=== PATIENT | female | born 1985 | race Caucasian/White ===

== ENCOUNTER 2018-11-02 12:33 | Inpatient (IN) | payer OTHER ==
[2018-11-02] MEDS ORDERED: Methylergonovine 0.2 MG/1 ML Amp IM PRN ×2 (13:09→15:32)
[2018-11-02] MEDS ORDERED: Sodium Chloride 0.9% 10 ML SDV IV PRN (13:09)
[2018-11-02] MEDS ORDERED: Tranexamic Acid 1,000 MG in Sodium Chloride 0.9% 100 ML IV PRN (13:09)
[2018-11-02] MEDS ORDERED: Carboprost Tromethamine 250 MCG/1 ML Amp IM PRN (13:09)
[2018-11-02] MEDS ORDERED: Nalbuphine 10 MG/1 ML Vial IVPUSH PRN (13:09)
[2018-11-02] MEDS ORDERED: Misoprostol 200 MCG Tab PO PRN (13:09)
[2018-11-02] MEDS ORDERED: Water For Irrigation,Sterile 1,000 ML Container IRR PRN (13:09)
[2018-11-02] MEDS ORDERED: Ondansetron 4 MG/2 ML SDV IVPUSH PRN (13:09)
[2018-11-02] MEDS ORDERED: Sodium Chloride 0.9% 10 ML Syringe FLUSH PRN (13:09)
[2018-11-02] MEDS ORDERED: Butorphanol 1 MG/ML SDV IVPUSH PRN (13:09)
[2018-11-02] MEDS ORDERED: Sodium Chloride 0.9% 2.5 ML Syringe FLUSH PRN (13:09)
[2018-11-02] MEDS ORDERED: Lidocaine 1% 50 ML MDV INJECT PRN (13:09)
[2018-11-02] MEDS ORDERED: Oxytocin/0.9 % Sodium Chloride 30 UNIT/500 ML BAG IV SCH (13:15)
[2018-11-02] MEDS: Lactated Ringers 1,000 ML IV SCH ×3 (13:30→14:49)
--- NOTE | 2018-11-02 14:55 | PCM.PREANE ---
Preanesthetic Assessment - Procedure Proposed Procedure: Labor epidural - Anesthesia/Transfusion/Family Hx Anesthesia History: Prior Anesthesia Without Reaction Family History of Anesthesia Reaction: No Transfusion History: No Prior Transfusion(s) - Review of Systems General: No Symptoms Pulmonary: No Symptoms Cardiovascular: No Symptoms Gastrointestinal: No Symptoms Neurological: No Symptoms Other: Reports: None - Physical Assessment NPO Status Date: 11/02/18 NPO Status Time: 13:00 (water) Height: 5 ft 6 in Weight: 94.801 kg ASA Class: 2 Mental Status: Alert & Oriented x3 Airway Class: Mallampati = 2 Dentition: Reports: Normal Dentition Thyro-Mental Finger Breadths: 3 ROM/Head Extension: Full Lungs: Clear to Auscultation, Normal Respiratory Effort Cardiovascular: Regular Rate, Regular Rhythm - Lab Values: Laboratory Last Values WBC 9.31 K/uL (4.0-11.0) 11/02/18 13:29 RBC 4.16 M/uL (4.30-5.90) L 11/02/18 13:29 Hgb 12.9 g/dL (12.0-16.0) 11/02/18 13:29 Hct 37.3 % (36.0-46.0) 11/02/18 13:29 MCV 89.7 fL (80.0-98.0) 11/02/18 13:29 MCH 31.0 pg (27.0-32.0) 11/02/18 13:29 MCHC 34.6 g/dL (31.0-37.0) 11/02/18 13:29 RDW Std Deviation 42.6 fl (28.0-62.0) 11/02/18 13:29 RDW Coeff of María 13 % (11.0-15.0) 11/02/18 13:29 Plt Count 157 K/uL (150-400) 11/02/18 13:29 MPV 9.50 fL (7.40-12.00) 11/02/18 13:29 Nucleated RBC % 0.0 /100WBC 11/02/18 13:29 Nucleated RBCs # 0 K/uL 11/02/18 13:29 Blood Type A POSITIVE 11/02/18 13:29 Antibody Screen NEGATIVE 11/02/18 13:29 - Allergies Allergies/Adverse Reactions: Allergies Allergy/AdvReac Type Severity Reaction Status Date / Time peanut Allergy Anaphylactic Verified 11/02/18 12:41 Shock Penicillins Allergy Cannot Verified 11/02/18 12:41 Remember - Acknowledgements Anesthesia Type Planned: Epidural Pt an Appropriate Candidate for the Planned Anesthesia: Yes Alternatives and Risks of Anesthesia Discussed w Pt/Guardian: Yes Pt/Guardian Understands and Agrees with Anesthesia Plan: Yes PreAnesthesia Questionnaire - HOME MEDS Home Medications: Home Meds Aspirin [Children's Aspirin] 81 mg PO DAILY 11/02/18 [History] Pnv No.95/Ferrous Fum/Folic AC [ Caplet] 1 each PO DAILY 11/02/18 [ History] - CURRENT (IN HOUSE) MEDS Current Meds: Current Medications Butorphanol Tartrate (Stadol) 1 mg IVPUSH Q1H PRN PRN Reason: Pain Carboprost Tromethamine (Hemabate Ds) 250 mcg IM ASDIRECTED PRN PRN Reason: Post Hemorrhage Tranexamic Acid 1,000 mg/ (Sodium Chloride) 110 mls @ 660 mls/hr IV ONETIME PRN PRN Reason: Bleeding Lactated Ringer's (Ringers, Lactated) 1,000 mls @ 150 mls/hr IV ASDIRECTED JOSE Last Admin: 11/02/18 14:12 Dose: 999 mls/hr Oxytocin/Sodium Chloride (Oxytocin 30 Unit/500 Ml-Ns) 30 unit in 500 mls @ 999 mls/hr IV TITRATE [facility] Lidocaine HCl (Xylocaine 1%) 50 ml INJECT ONETIME PRN PRN Reason: Laceration repair Methylergonovine Maleate (Methergine) 0.2 mg IM ASDIRECTED PRN PRN Reason: Post Hemorrhage Misoprostol (Cytotec) 200 mcg PO ONETIME PRN PRN Reason: Post Hemorrhage Nalbuphine HCl (Nubain) 10 mg IVPUSH Q1H PRN PRN Reason: Pain (severe 7-10) Ondansetron HCl (Zofran) 4 mg IVPUSH Q6H PRN PRN Reason: Nausea/Vomiting Sodium Chloride (Saline Flush) 10 ml FLUSH ASDIRECTED PRN PRN Reason: Keep Vein Open Sodium Chloride (Saline Flush) 2.5 ml FLUSH ASDIRECTED PRN PRN Reason: Keep Vein Open Sodium Chloride (Normal Saline) 10 ml IV ASDIRECTED PRN PRN Reason: IV Use Sterile Water (Sterile Water For Irrigation) 1,000 ml IRR ASDIRECTED PRN PRN Reason: delivery Discontinued Medications Fentanyl/Bupivacaine HCl (Jgcgeilq-Besrp-Cw 2 Mcg/Ml-0.125%) Confirm Administered Dose 100 mls @ as directed .ROUTE .[facility] ONE Stop: 11/02/18 14:22
--- NOTE | 2018-11-02 15:31 | PCM.DEL ---
L & D Note - General Info Date of Service: 11/02/18 Mother's Due Date: 11/08/18 - Delivery Note Labor: Spontaneous Delivery Outcome: Livebirth Infant Delivery Method: Spontaneous Vaginal Delivery-Single Presentation: Left Occiput Anterior (JENNY) Nuchal Cord: None Prep: Other Anesthesia Type: Epidural Amniotic Fluid Description: Clear Episiotomy Type: None Laceration: None Placenta: Intact, Spontaneous Cord: 3 Vessels Estimated Blood Loss: 200 Resuscitation Needed: No : Suctioned Score 1 min: 8 Score 5 min: 9 Delivery Comments (Free Text/Narrative):: Liveborn male 8/9 weight is pending. Placenta spontaneous, Schultze, intact with 3 vessels. Perineum intact. - General Info Date of Service: 11/02/18 - Patient Data Weight - Most Recent: 94.801 kg Lab Results Last 24 Hours: Laboratory Results - last 24 hr 11/02/18 11/02/18 Range/Units 13:29 13:29 WBC 9.31 (4.0-11.0) K/uL RBC 4.16 L (4.30-5.90) M/uL Hgb 12.9 (12.0-16.0) g/dL Hct 37.3 (36.0-46.0) % MCV 89.7 (80.0-98.0) fL MCH 31.0 (27.0-32.0) pg MCHC 34.6 (31.0-37.0) g/dL RDW Std Deviation 42.6 (28.0-62.0) fl RDW Coeff of María 13 (11.0-15.0) % Plt Count 157 (150-400) K/uL MPV 9.50 (7.40-12.00) fL Nucleated RBC % 0.0 /100WBC Nucleated RBCs # 0 K/uL Blood Type A POSITIVE Antibody Screen NEGATIVE Med Orders - Current: Current Medications Butorphanol Tartrate (Stadol) 1 mg IVPUSH Q1H PRN PRN Reason: Pain Carboprost Tromethamine (Hemabate Ds) 250 mcg IM ASDIRECTED PRN PRN Reason: Post Hemorrhage Tranexamic Acid 1,000 mg/ (Sodium Chloride) 110 mls @ 660 mls/hr IV ONETIME PRN PRN Reason: Bleeding Lactated Ringer's (Ringers, Lactated) 1,000 mls @ 150 mls/hr IV ASDIRECTED [facility] Last Admin: 11/02/18 14:49 Dose: 150 mls/hr Oxytocin/Sodium Chloride (Oxytocin 30 Unit/500 Ml-Ns) 30 unit in 500 mls @ 999 mls/hr IV TITRATE [facility] Lidocaine HCl (Xylocaine 1%) 50 ml INJECT ONETIME PRN PRN Reason: Laceration repair Methylergonovine Maleate (Methergine) 0.2 mg IM ASDIRECTED PRN PRN Reason: Post Hemorrhage Misoprostol (Cytotec) 200 mcg PO ONETIME PRN PRN Reason: Post Hemorrhage Nalbuphine HCl (Nubain) 10 mg IVPUSH Q1H PRN PRN Reason: Pain (severe 7-10) Ondansetron HCl (Zofran) 4 mg IVPUSH Q6H PRN PRN Reason: Nausea/Vomiting Sodium Chloride (Saline Flush) 10 ml FLUSH ASDIRECTED PRN PRN Reason: Keep Vein Open Sodium Chloride (Saline Flush) 2.5 ml FLUSH ASDIRECTED PRN PRN Reason: Keep Vein Open Sodium Chloride (Normal Saline) 10 ml IV ASDIRECTED PRN PRN Reason: IV Use Sterile Water (Sterile Water For Irrigation) 1,000 ml IRR ASDIRECTED PRN PRN Reason: delivery Discontinued Medications Fentanyl/Bupivacaine HCl (Xmgkyhvv-Irsfc-Zr 2 Mcg/Ml-0.125%) Confirm Administered Dose 100 mls @ as directed .ROUTE .[facility] ONE Stop: 11/02/18 14:22 - Problem List & Annotations (1) Vaginal delivery SNOMED Code(s): 927439012 Code(s): O80 - ENCOUNTER FOR FULL-TERM UNCOMPLICATED DELIVERY Status: Acute Current Visit: Yes - Problem List Review Problem List Initiated/Reviewed/Updated: Yes - My Orders Last 24 Hours: My Active Orders 11/02/18 12:44 Vital Signs [RC] PER UNIT ROUTINE Resuscitation Status Routine 11/02/18 13:07 Patient Status [ADT] Routine 11/02/18 13:09 May Shower [RC] ASDIRECTED Notify Provider [RC] PRN Up ad Krista [RC] ASDIRECTED Vital Signs [RC] PER UNIT ROUTINE Butorphanol [Stadol] 1 mg IVPUSH Q1H PRN Carboprost Tromethamine [Hemabate DS] 250 mcg IM ASDIRECTED PRN Lidocaine 1% [Xylocaine 1%] 50 ml INJECT ONETIME PRN Methylergonovine [Methergine] 0.2 mg IM ASDIRECTED PRN Nalbuphine [Nubain] 10 mg IVPUSH Q1H PRN Ondansetron [Zofran] 4 mg IVPUSH Q6H PRN Sodium Chloride 0.9% [Normal Saline] 10 ml IV ASDIRECTED PRN Sodium Chloride 0.9% [Saline Flush] 10 ml FLUSH ASDIRECTED PRN Sodium Chloride 0.9% [Saline Flush] 2.5 ml FLUSH ASDIRECTED PRN Tranexamic Acid [Cyklokapron] 1,000 mg Sodium Chloride 0.9% [Normal Saline] 100 ml IV ONETIME Water For Irrigation,Sterile [Sterile Water for Irrigation] 1,000 ml IRR ASDIRECTED PRN miSOPROStol [Cytotec] 200 mcg PO ONETIME PRN Scalp Electrode [WOMSER] Per Unit Routine Peripheral IV Insertion Adult [OM.PC] Routine 11/02/18 13:15 Lactated Ringers [Ringers, Lactated] 1,000 ml IV ASDIRECTED Oxytocin/0.9 % Sodium Chloride [Oxytocin 30 Unit/500 ML-NS] 30 unit in 500 ml IV TITRATE
[2018-11-02] MEDS ORDERED: Docusate Sodium 100 MG Cap PO PRN (15:32)
[2018-11-02] MEDS ORDERED: Benzocaine/Menthol 20%-0.5% Spray 78 GM Cannister TOP PRN (15:32)
[2018-11-02] MEDS ORDERED: Lanolin 100% Cream 7 GM Tube TOP PRN (15:32)
[2018-11-02] MEDS ORDERED: Bisacodyl 10 MG Supp RECTAL PRN (15:32)
[2018-11-02] MEDS ORDERED: Witch Hazel Medicated Pads 40/Jar TOP PRN (15:32)
[2018-11-02] MEDS ORDERED: Acetaminophen 500 MG Tab PO PRN ×2 (15:32)
[2018-11-02] MEDS ORDERED: Ibuprofen 400 MG Tab PO PRN (15:32)
[2018-11-02] MEDS ORDERED: Ibuprofen 800 MG Tab PO PRN (15:32)
[2018-11-02] MEDS ORDERED: oxyCODONE 5 MG Tab PO PRN (15:32)
--- NOTE | 2018-11-02 23:00 | OR ---
SURGEON: Margarita Monroe M.D. DATE OF PROCEDURE: 11/02/2018 PREOPERATIVE DIAGNOSES: 39 and 3/7 week intrauterine , active spontaneous labor. POSTOPERATIVE DIAGNOSIS: 39 and 3/7 week intrauterine , active spontaneous labor. PROCEDURE: Term spontaneous vaginal delivery. PRIMARY SURGEON: Margarita Monroe M.D. ANESTHESIA: Epidural. ESTIMATED BLOOD LOSS: Less than 200 mL. FINDINGS: Liveborn male, Apgars 8 and 9. Weight is pending at the time of dictation. Placenta is spontaneous, Schultze intact with 3 vessels. Perineum intact. COMPLICATIONS: None known. DISPOSITION: Mother and baby are in LDR in good condition. BRIEF HISTORY: This is a 33-year-old female, G5, P2-0-0-2. She presents at 39 and 3/7 weeks' gestation with spontaneous rupture of membranes at noon. She was initially 3 to 4 cm dilated. Within an hour, she was 4 cm to 5 cm dilated and then progressed into active labor. She received an epidural for pain control. She had category 1 heart tones. She progressed to complete by 3:11 p.m. DESCRIPTION OF PROCEDURE: With the patient in dorsal lithotomy position, the patient pushed over 1 contraction to a 5+ station at which time the head was delivered spontaneously and atraumatically over the perineum with support with subsequent delivery of the infant's shoulders and body without any difficulty. The infant was bulb suctioned by nose and mouth. After the cord had ceased to pulsate, it was doubly clamped and cut. Cord blood was collected for cord ABGs as well as routine cord blood sampling. The baby had been handed to the mother in the presence of the nurse attending delivery. The was a liveborn male, scores 8 and 9. Weight pending. Pitocin was initiated after delivery of the to assist with delivery of the placenta which was delivered spontaneously, Schultze intact with 3 vessels. Upon inspection of the pelvis and perineum, there were no periurethral, vaginal sidewall, cervical, rectal, or perineal lacerations. EBL was less than 200 mL. There were no known complications. Final sponge, needle, and instrument counts were correct. Mother and baby remained in LDR in good condition. MATTHEW / MAIA /[id number]
--- NOTE | 2018-11-03 10:17 | PCM.PNPP ---
- General Info Date of Service: 11/03/18 Functional Status: Reports: Pain Controlled, Tolerating Diet, Ambulating, Urinating - Review of Systems General: Reports: No Symptoms HEENT: Reports: No Symptoms Pulmonary: Reports: No Symptoms Cardiovascular: Reports: No Symptoms Gastrointestinal: Reports: No Symptoms Genitourinary: Reports: No Symptoms Musculoskeletal: Reports: No Symptoms Skin: Reports: No Symptoms Neurological: Reports: No Symptoms Psychiatric: Reports: No Symptoms - General Info Date of Service: 11/03/18 - Patient Data Vital Signs - Most Recent: Last Vital Signs Temp 36.5 C 11/03/18 07:40 Pulse 68 11/03/18 07:40 Resp 16 11/03/18 07:40 BP 122/70 11/03/18 07:40 Pulse Ox 98 11/03/18 07:40 Weight - Most Recent: 94.801 kg Lab Results - Last 24 Hours: Laboratory Results - last 24 hr 11/02/18 11/02/18 11/02/18 Range/Units 13:29 13:29 15:16 WBC 9.31 (4.0-11.0) K/uL RBC 4.16 L (4.30-5.90) M/uL Hgb 12.9 (12.0-16.0) g/dL Hct 37.3 (36.0-46.0) % MCV 89.7 (80.0-98.0) fL MCH 31.0 (27.0-32.0) pg MCHC 34.6 (31.0-37.0) g/dL RDW Std Deviation 42.6 (28.0-62.0) fl RDW Coeff of María 13 (11.0-15.0) % Plt Count 157 (150-400) K/uL MPV 9.50 (7.40-12.00) fL Nucleated RBC % 0.0 /100WBC Nucleated RBCs # 0 K/uL Cord ABG pH 7.330 (7.18-7.38) Cord ABG Base Excess -3 (-10--2) Cord VBG pH 7.422 (7.25-7.45) Cord VBG Base Excess -4 (-10--2) Blood Type A POSITIVE Antibody Screen NEGATIVE 11/03/18 Range/Units 05:47 WBC (4.0-11.0) K/uL RBC (4.30-5.90) M/uL Hgb 12.9 (12.0-16.0) g/dL Hct 38.1 (36.0-46.0) % MCV (80.0-98.0) fL MCH (27.0-32.0) pg MCHC (31.0-37.0) g/dL RDW Std Deviation (28.0-62.0) fl RDW Coeff of María (11.0-15.0) % Plt Count (150-400) K/uL MPV (7.40-12.00) fL Nucleated RBC % /100WBC Nucleated RBCs # K/uL Cord ABG pH (7.18-7.38) Cord ABG Base Excess (-10--2) Cord VBG pH (7.25-7.45) Cord VBG Base Excess (-10--2) Blood Type Antibody Screen Med Orders - Current: Current Medications Acetaminophen (Tylenol Extra Strength) 500 mg PO Q4H PRN PRN Reason: Pain Acetaminophen (Tylenol Extra Strength) 1,000 mg PO Q4H PRN PRN Reason: Pain Benzocaine/Menthol (Dermoplast Pain Relief 20%-0.5% [place]) 78 gm TOP ASDIRECTED PRN PRN Reason: Perineal Comfort Measure Bisacodyl (Dulcolax) 10 mg RECTAL ONETIME PRN PRN Reason: Constipation Docusate Sodium (Colace) 100 mg PO BID PRN PRN Reason: Constipation Emollient Ointment (Lansinoh Hpa) 0 gm TOP ASDIRECTED PRN PRN Reason: Sore Nipples Ibuprofen (Motrin) 400 mg PO Q6H PRN PRN Reason: Pain Ibuprofen (Motrin) 800 mg PO Q6H PRN PRN Reason: Pain Methylergonovine Maleate (Methergine) 0.2 mg IM ONETIME PRN PRN Reason: Excessive Vaginal Bleeding Oxycodone HCl (Oxycodone) 5 mg PO Q2H PRN PRN Reason: Pain Witch Sury (Tucks) 1 pad TOP ASDIRECTED PRN PRN Reason: comfort care Discontinued Medications Butorphanol Tartrate (Stadol) 1 mg IVPUSH Q1H PRN PRN Reason: Pain Carboprost Tromethamine (Hemabate Ds) 250 mcg IM ASDIRECTED PRN PRN Reason: Post Hemorrhage Tranexamic Acid 1,000 mg/ (Sodium Chloride) 110 mls @ 660 mls/hr IV ONETIME PRN PRN Reason: Bleeding Lactated Ringer's (Ringers, Lactated) 1,000 mls @ 150 mls/hr IV ASDIRECTED [facility] Last Admin: 11/02/18 14:49 Dose: 150 mls/hr Oxytocin/Sodium Chloride (Oxytocin 30 Unit/500 Ml-Ns) 30 unit in 500 mls @ 999 mls/hr IV TITRATE [facility] Fentanyl/Bupivacaine HCl (Bmdwkihn-Pqoyk-Vd 2 Mcg/Ml-0.125%) Confirm Administered Dose 100 mls @ as directed .ROUTE .[facility] ONE Stop: 11/02/18 14:22 Lidocaine HCl (Xylocaine 1%) 50 ml INJECT ONETIME PRN PRN Reason: Laceration repair Methylergonovine Maleate (Methergine) 0.2 mg IM ASDIRECTED PRN PRN Reason: Post Hemorrhage Misoprostol (Cytotec) 200 mcg PO ONETIME PRN PRN Reason: Post Hemorrhage Nalbuphine HCl (Nubain) 10 mg IVPUSH Q1H PRN PRN Reason: Pain (severe 7-10) Ondansetron HCl (Zofran) 4 mg IVPUSH Q6H PRN PRN Reason: Nausea/Vomiting Sodium Chloride (Saline Flush) 10 ml FLUSH ASDIRECTED PRN PRN Reason: Keep Vein Open Sodium Chloride (Saline Flush) 2.5 ml FLUSH ASDIRECTED PRN PRN Reason: Keep Vein Open Sodium Chloride (Normal Saline) 10 ml IV ASDIRECTED PRN PRN Reason: IV Use Sterile Water (Sterile Water For Irrigation) 1,000 ml IRR ASDIRECTED PRN PRN Reason: delivery - Interaction Infant Disposition, : in Room with Family Interaction: Holding Infant Feeding: Breastfed ; Nursed Well Support Person: , Significant Other - Recovery Exam Fundal Tone: Firm Fundal Level: 1 Fingerbreadths Below Umbilicus Fundal Placement: Midline Lochia Amount: Scant Lochia Color: Rubra/Red Perineum Description: Intact, Minimal Bruising/Swelling Episiotomy/Laceration: None Bladder Status: Voiding Urinary Elimination: Voided - Exam General: Alert, Oriented HEENT: Pupils Equal Neck: Supple Lungs: Normal Respiratory Effort GI/Abdominal Exam: Soft, Non-Tender, No Distention, No Abnormal Bruit, No Mass, Pelvis Stable Extremities: Normal Inspection, Non-Tender, No Pedal Edema Skin: Warm, Dry, Intact Neurological: No New Focal Deficit Psy/Mental Status: Alert, Normal Affect, Normal Mood - Problem List & Annotations (1) Vaginal delivery SNOMED Code(s): 762629902 Code(s): O80 - ENCOUNTER FOR FULL-TERM UNCOMPLICATED DELIVERY Status: Acute Current Visit: Yes - Problem List Review Problem List Initiated/Reviewed/Updated: Yes - My Orders Last 24 Hours: My Active Orders 11/02/18 12:44 Vital Signs [RC] PER UNIT ROUTINE 11/02/18 13:09 May Shower [RC] ASDIRECTED Notify Provider [RC] PRN Up ad Krista [RC] ASDIRECTED Vital Signs [RC] PER UNIT ROUTINE 11/02/18 15:32 Patient Status [ADT] Routine July Shower [RC] ASDIRECTED Up ad Krista [RC] ASDIRECTED Vital Signs [RC] PER UNIT ROUTINE Acetaminophen [Tylenol Extra Strength] 1,000 mg PO Q4H PRN Acetaminophen [Tylenol Extra Strength] 500 mg PO Q4H PRN Benzocaine/Menthol [Dermoplast Pain Relief 20%-0.5% [place]] 78 gm TOP ASDIRECTED PRN Bisacodyl [Dulcolax] 10 mg RECTAL ONETIME PRN Docusate Sodium [Colace] 100 mg PO BID PRN Ibuprofen [Motrin] 400 mg PO Q6H PRN Ibuprofen [Motrin] 800 mg PO Q6H PRN Lanolin [Lansinoh HPA] See Dose Instructions TOP ASDIRECTED PRN Methylergonovine [Methergine] 0.2 mg IM ONETIME PRN Witch Sury [Tucks] 1 pad TOP ASDIRECTED PRN oxyCODONE 5 mg PO Q2H PRN Assess Lochia [WOMSER] Per Unit Routine Assess Uterine Involution [WOMSER] Per Unit Routine Peripheral IV Discontinue [OM.PC] Routine Resuscitation Status Routine 11/02/18 15:33 Perineal Care [OM.PC] Per Unit Routine 11/02/18 Dinner Regular Diet [DIET] - Assessment Assessment:: PPD#1 after , stable, Minimal lochia, well, would like to go home today. - Plan Plan:: Discharge instructions reviewed, dismiss when greater than 24 hours .
--- NOTE | 2018-11-03 15:34 | PCM48HPAN ---
Post Anesthesia Note - EVALUATION WITHIN 48HRS OF ANESTHETIC Vital Signs in Normal Range: Yes Patient Participated in Evaluation: Yes Respiratory Function Stable: Yes Airway Patent: Yes Cardiovascular Function Stable: Yes Hydration Status Stable: Yes Pain Control Satisfactory: Yes Nausea and Vomiting Control Satisfactory: Yes Mental Status Recovered: Yes Vital Signs: Last Vital Signs Temp 36.5 C 11/03/18 07:40 Pulse 68 11/03/18 07:40 Resp 16 11/03/18 07:40 BP 122/70 11/03/18 07:40 Pulse Ox 98 11/03/18 07:40 - COMMENTS/OBSERVATIONS Free Text/Narrative:: no anesthesia problems
== END 2018-11-03 18:00 | disposition home or self-care (01) | DRG 807 ==
LOC: MW.OBCHECK 12:33 → MW.OB 12:34 → MW.OBCHECK 13:08 → MW.OB 13:09 → OBSVTOIN 15:16 → MW.OB 22:18
PROVIDERS: ADMIT Obstetrics & Gynecology; ATTEND Obstetrics & Gynecology
PROC: 10E0XZZ Delivery of Products of Conception, External Approach (ICD-10-PCS; principal; 2018-11-02)
PROC: 3E0R3BZ Introduction of Anesthetic Agent into Spinal Canal, Percutaneous Approach (ICD-10-PCS; 2018-11-02)
DX: O80 Encounter for full-term uncomplicated delivery (principal); Z37.0 Single live birth; Z3A.39 39 weeks gestation of pregnancy; Z88.0 Allergy status to penicillin; Z79.82 Long term (current) use of aspirin
CPT/HCPCS: 01967; 36415; 59025; 59409; 82803; 85014; 85018; 85027; 86850; 86900; 86901; J7120

== ENCOUNTER 2020-11-07 18:58 | Inpatient (IN) | payer BC ==
[2020-11-07] MEDS ORDERED: Ondansetron 4 MG/2 ML SDV IVPUSH PRN (19:18)
[2020-11-07] MEDS ORDERED: Sodium Chloride 0.9% 2.5 ML Syringe FLUSH PRN (19:18)
[2020-11-07] MEDS ORDERED: Methylergonovine 0.2 MG/1 ML Amp IM PRN (19:18)
[2020-11-07] MEDS ORDERED: Sodium Chloride 0.9% 10 ML Syringe FLUSH PRN (19:18)
[2020-11-07] MEDS ORDERED: Lidocaine 1% 50 ML MDV INJECT PRN (19:18)
[2020-11-07] MEDS ORDERED: Tranexamic Acid 1,000 MG in Sodium Chloride 0.9% 100 ML IV PRN (19:18)
[2020-11-07] MEDS ORDERED: Carboprost Tromethamine 250 MCG/1 ML Amp IM PRN (19:18)
[2020-11-07] MEDS ORDERED: Nalbuphine 10 MG/1 ML Vial IVPUSH PRN (19:18)
[2020-11-07] MEDS ORDERED: Misoprostol 200 MCG Tab PO PRN (19:18)
[2020-11-07] MEDS ORDERED: Water For Irrigation,Sterile 1,000 ML Container IRR PRN (19:18)
[2020-11-07] MEDS ORDERED: Sodium Chloride 0.9% 10 ML SDV IV PRN (19:18)
[2020-11-07] MEDS ORDERED: Butorphanol 1 MG/ML SDV IVPUSH PRN (19:18)
[2020-11-07] MEDS ORDERED: Terbutaline 1 MG/ML SDV SUBCUT PRN (19:22)
[2020-11-07] MEDS ORDERED: Oxytocin/0.9 % Sodium Chloride 30 UNIT/500 ML BAG IV SCH ×2 (19:30)
[2020-11-07] MEDS: Lactated Ringers 1,000 ML IV SCH ×3 (19:35→21:19)
[2020-11-07] MEDS ORDERED: Ropivacaine HCl/PF 200 ML ONE (19:47)
[2020-11-07] MEDS ORDERED: ePHEDrine 50 MG/ML SDV IM ONE (20:33)
[2020-11-07] MEDS ORDERED: ePHEDrine 50 MG/ML SDV IVPUSH ONE (20:39)
[2020-11-07] MEDS ORDERED: EPINEPHrine 1 MG/ML SDV ONE (20:42)
--- NOTE | 2020-11-07 21:44 | PCM.PREANE ---
Preanesthetic Assessment - Anesthesia/Transfusion/Family Hx Anesthesia History: Prior Anesthesia Without Reaction Family History of Anesthesia Reaction: No Transfusion History: No Prior Transfusion(s) - Review of Systems General: No Symptoms Pulmonary: No Symptoms Cardiovascular: No Symptoms Gastrointestinal: No Symptoms Neurological: No Symptoms Other: Reports: None - Physical Assessment Height: 5 ft 5 in Weight: 204 lb ASA Class: 2 Mental Status: Alert & Oriented x3 Airway Class: Mallampati = 3 Dentition: Reports: Normal Dentition ROM/Head Extension: Full Lungs: Clear to Auscultation, Normal Respiratory Effort Cardiovascular: Regular Rate, Regular Rhythm - Lab Values: Laboratory Last Values WBC 9.76 K/uL (4.0-11.0) 11/07/20 19:35 RBC 4.14 M/uL (4.30-5.90) L 11/07/20 19:35 Hgb 13.2 g/dL (12.0-16.0) 11/07/20 19:35 Hct 37.0 % (36.0-46.0) 11/07/20 19:35 MCV 89.4 fL (80.0-98.0) 11/07/20 19:35 MCH 31.9 pg (27.0-32.0) 11/07/20 19:35 MCHC 35.7 g/dL (31.0-37.0) 11/07/20 19:35 RDW Std Deviation 41.3 fl (28.0-62.0) 11/07/20 19:35 RDW Coeff of María 13 % (11.0-15.0) 11/07/20 19:35 Plt Count 186 K/uL (150-400) 11/07/20 19:35 MPV 9.40 fL (7.40-12.00) 11/07/20 19:35 Nucleated RBC % 0.0 /100WBC 11/07/20 19:35 Nucleated RBCs # 0 K/uL 11/07/20 19:35 SARS-CoV-2 RNA (OCTAVIO) NEGATIVE (NEGATIVE) 11/07/20 19:35 Blood Type A POSITIVE 11/07/20 19:35 Antibody Screen NEGATIVE 11/07/20 19:35 - Allergies Allergies/Adverse Reactions: Allergies Allergy/AdvReac Type Severity Reaction Status Date / Time cat dander Allergy Rash Verified 08/31/21 19:17 peanut Allergy Anaphylactic Verified 11/07/20 19:17 Shock Penicillins Allergy Cannot Verified 11/07/20 19:17 Remember - Blood Blood Available: Yes Product(s) Available: PRBC, FFP, Platelets - Anesthesia Plan Pre-Op Medication Ordered: None - Acknowledgements Anesthesia Type Planned: Epidural Pt an Appropriate Candidate for the Planned Anesthesia: Yes Alternatives and Risks of Anesthesia Discussed w Pt/Guardian: Yes Pt/Guardian Understands and Agrees with Anesthesia Plan: Yes PreAnesthesia Questionnaire - Past Health History Medical/Surgical History: Denies Medical/Surgical History Cardiovascular History: Reports: None Respiratory History: Reports: None Gastrointestinal History: Reports: None Genitourinary History: Reports: None SHEEP HERDER History: Reports: , Spontaneous , Other (See Below) Other OB/BYN History: Suction D&C. Lumpy, tender breasts. Neurological History: Reports: None Psychiatric History: Reports: None Endocrine/Metabolic History: Reports: None Oncologic (Cancer) History: Reports: None Dermatologic History: Reports: None - Infectious Disease History Infectious Disease History: Reports: Chicken Pox - Past Surgical History Head Surgeries/Procedures: Reports: None Respiratory Surgical History: Reports: None - HOME MEDS Home Medications: Home Meds Aspirin [Children's Aspirin] 81 mg PO DAILY 11/02/18 [History] Pnv No.95/Ferrous Fum/Folic AC [ Caplet] 1 each PO DAILY 11/02/18 [History] - CURRENT (IN HOUSE) MEDS Current Meds: Current Medications Butorphanol Tartrate (Butorphanol 1 Mg/Ml Sdv) 1 mg IVPUSH Q1H PRN PRN Reason: Pain (severe 7-10) Carboprost Tromethamine (Carboprost Tromethamine 250 Mcg/1 Ml Amp) 250 mcg IM ASDIRECTED PRN PRN Reason: Post Hemorrhage Oxytocin/Sodium Chloride (Oxytocin 30 Unit/500 Ml-Ns) 30 unit in 500 mls @ 500 mls/hr IV TITRATE JOSE Tranexamic Acid 1,000 mg/ (Sodium Chloride) 110 mls @ 660 mls/hr IV ONETIME PRN PRN Reason: Bleeding Lactated Ringer's (Ringers, Lactated) 1,000 mls @ 150 mls/hr IV ASDIRECTED [facility] Last Admin: 11/07/20 21:19 Dose: 150 mls/hr Documented by: Oxytocin/Sodium Chloride (Oxytocin 30 Unit/500 Ml-Ns) 30 unit in 500 mls @ 2 mls/hr IV TITRATE JOSE; Protocol Lidocaine HCl (Lidocaine 1% 50 Ml Mdv) 50 ml INJECT ONETIME PRN PRN Reason: Laceration repair Methylergonovine Maleate (Methylergonovine 0.2 Mg/1 Ml Amp) 0.2 mg IM ASDIRECTED PRN PRN Reason: Post Hemorrhage Misoprostol (Misoprostol 200 Mcg Tab) 200 mcg PO ONETIME PRN PRN Reason: Post Hemorrhage Nalbuphine HCl (Nalbuphine 10 Mg/1 Ml Vial) 10 mg IVPUSH Q1H PRN PRN Reason: Pain (severe 7-10) Ondansetron HCl (Ondansetron 4 Mg/2 Ml Sdv) 4 mg IVPUSH Q4H PRN PRN Reason: Nausea/Vomiting Last Admin: 11/07/20 20:48 Dose: 4 mg Documented by: Sodium Chloride (Sodium Chloride 0.9% 10 Ml Syringe) 10 ml FLUSH ASDIRECTED PRN PRN Reason: Keep Vein Open Sodium Chloride (Sodium Chloride 0.9% 2.5 Ml Syringe) 2.5 ml FLUSH ASDIRECTED PRN PRN Reason: Keep Vein Open Sodium Chloride (Sodium Chloride 0.9% 10 Ml Sdv) 10 ml IV ASDIRECTED PRN PRN Reason: IV Use Sterile Water (Water For Irrigation,Sterile 1,000 Ml Container) 1,000 ml IRR ASDIRECTED PRN PRN Reason: delivery Terbutaline Sulfate (Terbutaline 1 Mg/Ml Sdv) 0.25 mg SUBCUT ASDIRECTED PRN PRN Reason: Tacysystole Discontinued Medications Ephedrine Sulfate (Ephedrine 50 Mg/Ml Sdv) 25 mg IM ONETIME ONE Stop: 11/07/20 20:34 Last Admin: 11/07/20 21:16 Dose: 25 mg Documented by: Ephedrine Sulfate (Ephedrine 50 Mg/Ml Sdv) 25 mg IVPUSH ONETIME ONE Stop: 11/07/20 20:40 Last Admin: 11/07/20 20:49 Dose: 25 mg Documented by: Epinephrine HCl (Epinephrine 1 Mg/Ml Sdv) Confirm Administered Dose 1 mg .ROUTE .STK-MED ONE Stop: 11/07/20 20:43 Ropivacaine (Naropin 0.2%) Confirm Administered Dose 200 mls @ as directed .ROUTE .buildabrand-MED ONE Stop: 11/07/20 19:48 - Pre-Procedure Checklist Attending Provider Aware: Yes Chart Reviewed: Yes Consent Signed: Yes Labs Reviewed: Yes VS/FHR Reviewed: Yes Patient Identification Confirmation Method: Reports: Verbal Patient Pt an Appropriate Candidate for the Planned Anesthesia: Yes Alternatives and Risks of Anesthesia Discussed w Pt/Guardian: Yes - Procedure Procedure Start Date: 11/07/20 Procedure Start Time: 19:[address]: Reports: Blood Pressure, Heart Rate, SPO2 Functional IV: Yes Safety Measures: Reports: Patient Identified, Procedure Verified, Site Verified, Procedure Time Out Patient Position: Reports: Sitting Prep: Reports: Betadine x3, Sterile Drape Local Anesthetic: Reports: Intradermal Wheal w Lidocaine 1% Regional Placement Level: Reports: L3-4 Needle: Reports: 17 g Touhy Approach: Reports: Midline Technique: Reports: JUANITO Plastic Syringe Parasthesia: Reports: None Test Dose Time: 19:54 Test Dose Medication: Reports: Lidocaine 1.5% w Epinephrine 1:200,000 Test Dose Response: Reports: Negative Loading Dose Time: 19:53 Loading Dose Medication: bupivicaine 0.25% 10cc Loading Dose Patient Position: sitting Continuous Infusion Start Time: 19:55 Continuous Infusion Medication: ropivicaine 0.2% Continuous Infusion Rate: 16 Continuous Infusion PCS Bolus Option: 4 Patient Position Post Placement: Reports: Supline/FATEMEH VS and FHR Monitored in Unit Post Placement: Yes Procedure End Date: 11/07/20 Procedure End Time: 20:51
--- NOTE | 2020-11-07 21:45 | PCM.POSTAN ---
POST ANESTHESIA ASSESSMENT - MENTAL STATUS Mental Status: Alert, Oriented - RESPIRATORY Respiratory Status: Respiratory Rate WNL, Airway Patent, O2 Saturation Stable - CARDIOVASCULAR CV Status: Pulse Rate WNL, Blood Pressure Stable - GASTROINTESTINAL GI Status: No Symptoms - POST OP HYDRATION Hydration Status: Adequate & Stable
[2020-11-07] MEDS ORDERED: Ibuprofen 400 MG Tab PO PRN (23:40)
[2020-11-07] MEDS ORDERED: Benzocaine/Menthol 20%-0.5% Spray 78 GM Cannister TOP PRN (23:40)
[2020-11-07] MEDS ORDERED: Acetaminophen 500 MG Tab PO PRN ×2 (23:40)
[2020-11-07] MEDS ORDERED: Bisacodyl 10 MG Supp RECTAL PRN (23:40)
[2020-11-07] MEDS ORDERED: Witch Hazel Medicated Pads 40/Jar TOP PRN (23:40)
[2020-11-07] MEDS ORDERED: Docusate Sodium 100 MG Cap PO PRN (23:40)
[2020-11-07] MEDS ORDERED: Lanolin 100% Cream 7 GM Tube TOP PRN (23:40)
[2020-11-07] MEDS ORDERED: Ibuprofen 800 MG Tab PO PRN (23:40)
[2020-11-07] MEDS ORDERED: oxyCODONE 5 MG Tab PO PRN (23:40)
--- NOTE | 2020-11-07 23:47 | PCM.OPNOTE ---
- General Post-Op/Procedure Note Date of Surgery/Procedure: 11/07/20 Operative Procedure(s): /IP Findings: Viable male APGARs 6, 8 weight 3410 gm. Spontaneous delivery intact placenta with 3V cord Pre Op Diagnosis: 39/5 week IUP. Active labor Post-Op Diagnosis: Same Anesthesia Technique: Epidural Primary Surgeon: Yudi Walsh EBL in mLs: 250 Complications: none known Condition: Good Free Text/Narrative:: Dictation
--- NOTE | 2020-11-08 00:20 | OR ---
SURGEON: Yudi Walsh M.D. DATE OF PROCEDURE: 11/07/2020 PREOPERATIVE DIAGNOSES: 1. 39 and 5 weeks' intrauterine . 2. Active labor. POSTOPERATIVE DIAGNOSES: 1. 39 and 5 weeks' intrauterine . 2. Active labor. PROCEDURE: Spontaneous vaginal delivery, intact perineum. PRIMARY SURGEON: Yudi Walsh M.D. ANESTHESIA: Epidural. ESTIMATED BLOOD LOSS: 250 mL. COMPLICATIONS: None. FINDINGS: Viable male. scores 6 at one minute and 8 at five minutes. Weight of 3410 g. Spontaneous delivery, intact placenta, 3-vessel cord. DISPOSITION: went to nursery. Mom in LDRP. PROCEDURE DETAILS: Zelda is a 35-year-old, G6, P 3-0-2-3, at 39 and 5 weeks' gestational age, who presents on the evening of 11/07/2020, with regular contractions that have become more intense in nature. On examination, she was found to be 3 to 4 cm dilated with marielle every 2 minute. The patient was admitted, routine labs were drawn, and IV hydration was initiated. She requested regional anesthesia in the form of epidural, underwent this satisfactorily, and became more comfortable. Shortly thereafter, she was found to be approximately 5 cm dilated, and contractions had spaced out to 4 minutes. She then had spontaneous rupture of membranes shortly thereater. Clear fluid was returned, and she began marielle much more regularly, and quickly progressed to complete. I was called for delivery. Upon my arrival, the patient was placed in the modified dorsal lithotomy position, was prepped and draped in the usual aseptic manner. At that time, she was found to be complete, +1 station, began pushing efforts, pushed readily to a +4 station, delivered 's head directly OP followed by anterior shoulder, posterior shoulder, and the remainder of the body without difficulty. The infant's oropharynx and nares were bulb suctioned. The was handed off to his mother with attending nursing staff at her side. After a delay, cord was clamped x2 and cut. Cord arterial, cord venous, and cord blood sampling were obtained. Light pressure was applied while the placenta was delivered spontaneously intact. Vigorous fundal and uterine massage was applied while 30 units of Pitocin was delivered in 500 mL of IV fluid. Upon inspection of cervix, vaginal sidewalls, and perineum, these found to be intact. Uterus remained firm. Hemostasis was evident. Sponge count and instrument count were correct. The patient remained in LDRP and to nursery. MARIANO / MAIA /[id number] MTDD
--- NOTE | 2020-11-08 13:10 | PCM.PNPP ---
- General Info Date of Service: 11/08/20 Functional Status: Reports: Pain Controlled, Tolerating Diet, Ambulating - Review of Systems General: Reports: No Symptoms HEENT: Reports: No Symptoms Pulmonary: Reports: No Symptoms Cardiovascular: Reports: No Symptoms Gastrointestinal: Reports: No Symptoms Genitourinary: Reports: No Symptoms Musculoskeletal: Reports: No Symptoms Skin: Reports: No Symptoms Neurological: Reports: No Symptoms Psychiatric: Reports: No Symptoms - General Info Date of Service: 11/08/20 - Patient Data Vital Signs - Most Recent: Last Vital Signs Temp 36.3 C 11/08/20 08:00 Pulse 72 11/08/20 08:00 Resp 18 11/08/20 08:00 BP 109/68 11/08/20 08:00 Pulse Ox 97 11/08/20 08:00 Weight - Most Recent: 92.533 kg I&O - Last 24 Hours: Intake & Output 11/07/20 11/08/20 11/08/20 22:59 06:59 14:59 Intake Total 3500 Output Total 550 800 Balance -550 2700 Lab Results - Last 24 Hours: Laboratory Results - last 24 hr 11/07/20 11/07/20 11/07/20 Range/Units 19:35 19:35 19:35 WBC 9.76 (4.0-11.0) K/uL RBC 4.14 L (4.30-5.90) M/uL Hgb 13.2 (12.0-16.0) g/dL Hct 37.0 (36.0-46.0) % MCV 89.4 (80.0-98.0) fL MCH 31.9 (27.0-32.0) pg MCHC 35.7 (31.0-37.0) g/dL RDW Std Deviation 41.3 (28.0-62.0) fl RDW Coeff of María 13 (11.0-15.0) % Plt Count 186 (150-400) K/uL MPV 9.40 (7.40-12.00) fL Nucleated RBC % 0.0 /100WBC Nucleated RBCs # 0 K/uL Cord ABG pH (7.18-7.38) Cord ABG Base Excess (-10--2) Cord VBG pH (7.25-7.45) Cord VBG Base Excess (-10--2) SARS-CoV-2 RNA (OCTAVIO) NEGATIVE (NEGATIVE) Blood Type A POSITIVE Antibody Screen NEGATIVE 11/07/20 11/08/20 Range/Units 23:06 04:40 WBC (4.0-11.0) K/uL RBC (4.30-5.90) M/uL Hgb 12.6 (12.0-16.0) g/dL Hct 36.3 (36.0-46.0) % MCV (80.0-98.0) fL MCH (27.0-32.0) pg MCHC (31.0-37.0) g/dL RDW Std Deviation (28.0-62.0) fl RDW Coeff of María (11.0-15.0) % Plt Count (150-400) K/uL MPV (7.40-12.00) fL Nucleated RBC % /100WBC Nucleated RBCs # K/uL Cord ABG pH 7.080 L (7.18-7.38) Cord ABG Base Excess -10 (-10--2) Cord VBG pH 7.233 L (7.25-7.45) Cord VBG Base Excess -8 (-10--2) SARS-CoV-2 RNA (OCTAVIO) (NEGATIVE) Blood Type Antibody Screen Med Orders - Current: Current Medications Acetaminophen (Acetaminophen 500 Mg Tab) 500 mg PO Q4H PRN PRN Reason: Pain (mild 1-3) Acetaminophen (Acetaminophen 500 Mg Tab) 1,000 mg PO Q4H PRN PRN Reason: Pain (mild 1-3) Last Admin: 11/08/20 00:18 Dose: 1,000 mg Documented by: Benzocaine/Menthol (Benzocaine/Menthol 20%-0.5% Harrison 78 Gm Cannister) 78 gm TOP ASDIRECTED PRN PRN Reason: Perineal Comfort Measure Last Admin: 11/08/20 00:20 Dose: 1 spray Documented by: Bisacodyl (Bisacodyl 10 Mg Supp) 10 mg RECTAL ONETIME PRN PRN Reason: Constipation Carboprost Tromethamine (Carboprost Tromethamine 250 Mcg/1 Ml Amp) 250 mcg IM ASDIRECTED PRN PRN Reason: Post Hemorrhage Docusate Sodium (Docusate Sodium 100 Mg Cap) 100 mg PO Q12H PRN PRN Reason: Constipation Emollient Ointment (Lanolin 100% Cream 7 Gm Tube) 0 gm TOP ASDIRECTED PRN PRN Reason: Sore Nipples Last Admin: 11/08/20 00:18 Dose: 1 applic Documented by: Oxytocin/Sodium Chloride (Oxytocin 30 Unit/500 Ml-Ns) 30 unit in 500 mls @ 500 mls/hr IV TITRATE [facility] Last Admin: 11/07/20 23:13 Dose: 999 mls/hr Documented by: Tranexamic Acid 1,000 mg/ (Sodium Chloride) 110 mls @ 660 mls/hr IV ONETIME PRN PRN Reason: Bleeding Lactated Ringer's (Ringers, Lactated) 1,000 mls @ 150 mls/hr IV ASDIRECTED [facility] Last Admin: 11/07/20 21:19 Dose: 150 mls/hr Documented by: Ibuprofen (Ibuprofen 400 Mg Tab) 400 mg PO Q4H PRN PRN Reason: Pain (mild 1-3) Ibuprofen (Ibuprofen 800 Mg Tab) 800 mg PO Q6H PRN PRN Reason: Pain (mild 1-3) Last Admin: 11/08/20 00:18 Dose: 800 mg Documented by: Ondansetron HCl (Ondansetron 4 Mg/2 Ml Sdv) 4 mg IVPUSH Q4H PRN PRN Reason: Nausea/Vomiting Last Admin: 11/07/20 20:48 Dose: 4 mg Documented by: Oxycodone HCl (Oxycodone 5 Mg Tab) 5 mg PO Q2H PRN PRN Reason: Pain (severe 7-10) Sodium Chloride (Sodium Chloride 0.9% 10 Ml Syringe) 10 ml FLUSH ASDIRECTED PRN PRN Reason: Keep Vein Open Sodium Chloride (Sodium Chloride 0.9% 2.5 Ml Syringe) 2.5 ml FLUSH ASDIRECTED PRN PRN Reason: Keep Vein Open Sodium Chloride (Sodium Chloride 0.9% 10 Ml Sdv) 10 ml IV ASDIRECTED PRN PRN Reason: IV Use Sterile Water (Water For Irrigation,Sterile 1,000 Ml Container) 1,000 ml IRR ASDIRECTED PRN PRN Reason: delivery Witch Sury (Witch Sury Medicated Pads 40/Jar) 1 pad TOP ASDIRECTED PRN PRN Reason: comfort care Last Admin: 11/08/20 00:19 Dose: 1 pad Documented by: Discontinued Medications Butorphanol Tartrate (Butorphanol 1 Mg/Ml Sdv) 1 mg IVPUSH Q1H PRN PRN Reason: Pain (severe 7-10) Ephedrine Sulfate (Ephedrine 50 Mg/Ml Sdv) 25 mg IM ONETIME ONE Stop: 11/07/20 20:34 Last Admin: 11/07/20 21:16 Dose: 25 mg Documented by: Ephedrine Sulfate (Ephedrine 50 Mg/Ml Sdv) 25 mg IVPUSH ONETIME ONE Stop: 11/07/20 20:40 Last Admin: 11/07/20 20:49 Dose: 25 mg Documented by: Epinephrine HCl (Epinephrine 1 Mg/Ml Sdv) Confirm Administered Dose 1 mg .ROUTE .STK-MED ONE Stop: 11/07/20 20:43 Last Admin: 11/08/20 00:32 Dose: Not Given Documented by: Oxytocin/Sodium Chloride (Oxytocin 30 Unit/500 Ml-Ns) 30 unit in 500 mls @ 2 mls/hr IV TITRATE JOSE; Protocol Ropivacaine (Naropin 0.2%) Confirm Administered Dose 200 mls @ as directed .ROUTE .STK-MED ONE Stop: 11/07/20 19:48 Last Admin: 11/08/20 00:32 Dose: Not Given Documented by: Lidocaine HCl (Lidocaine 1% 50 Ml Mdv) 50 ml INJECT ONETIME PRN PRN Reason: Laceration repair Methylergonovine Maleate (Methylergonovine 0.2 Mg/1 Ml Amp) 0.2 mg IM ASDIRECTE D PRN PRN Reason: Post Hemorrhage Misoprostol (Misoprostol 200 Mcg Tab) 200 mcg PO ONETIME PRN PRN Reason: Post Hemorrhage Nalbuphine HCl (Nalbuphine 10 Mg/1 Ml Vial) 10 mg IVPUSH Q1H PRN PRN Reason: Pain (severe 7-10) Terbutaline Sulfate (Terbutaline 1 Mg/Ml Sdv) 0.25 mg SUBCUT ASDIRECTED PRN PRN Reason: Tacysystole - Infant Interaction Disposition, : [place] in Room with Family Interaction: Holding Feeding: Attempted ; Nursed Fair/Poor Support Person: - Recovery Exam Fundal Tone: Firm Fundal Level: 1 Fingerbreadths Below Umbilicus Fundal Placement: Midline Lochia Amount: Scant Lochia Color: Rubra/Red Perineum Description: Intact, Minimal Bruising/Swelling Episiotomy/Laceration: None Bladder Status: Voiding - Exam General: Alert, Oriented Neck: Supple Lungs: Normal Respiratory Effort Cardiovascular: Regular Rate, Regular Rhythm Extremities: Normal Inspection, Normal Range of Motion Wound/Incisions: Healing Well Neurological: No New Focal Deficit - Problem List & Annotations (1) Vaginal delivery SNOMED Code(s): 882216364 Code(s): O80 - ENCOUNTER FOR FULL-TERM UNCOMPLICATED DELIVERY Status: Acute Current Visit: No - Problem List Review Problem List Initiated/Reviewed/Updated: Yes - Assessment Assessment:: PPD1 after TSVD, stable, minimal lochia, tolerating diet. Breast feeding is going well. - Plan Plan:: continue care, anticipate discharge tomorrow
--- NOTE | 2020-11-09 07:40 | PCM48HPAN ---
Post Anesthesia Note - EVALUATION WITHIN 48HRS OF ANESTHETIC Vital Signs in Normal Range: Yes Patient Participated in Evaluation: Yes Respiratory Function Stable: Yes Airway Patent: Yes Cardiovascular Function Stable: Yes Hydration Status Stable: Yes Pain Control Satisfactory: Yes Nausea and Vomiting Control Satisfactory: Yes Mental Status Recovered: Yes Vital Signs: Last Vital Signs Temp 98.0 F 11/09/20 07:35 Pulse 81 11/09/20 07:35 Resp 16 11/09/20 07:35 BP 119/73 11/09/20 07:35 Pulse Ox 97 11/09/20 07:35
--- NOTE | 2020-11-09 08:16 | PCM.PNPP ---
- General Info Date of Service: 11/09/20 Functional Status: Reports: Pain Controlled, Tolerating Diet, Ambulating, Urinating - Review of Systems General: Reports: No Symptoms HEENT: Reports: No Symptoms Pulmonary: Reports: No Symptoms Cardiovascular: Reports: No Symptoms Gastrointestinal: Reports: No Symptoms Genitourinary: Reports: No Symptoms Musculoskeletal: Reports: No Symptoms Skin: Reports: No Symptoms Neurological: Reports: No Symptoms Psychiatric: Reports: No Symptoms - General Info Date of Service: 11/09/20 - Patient Data Vital Signs - Most Recent: Last Vital Signs Temp 36.7 C 11/09/20 07:35 Pulse 81 11/09/20 07:35 Resp 16 11/09/20 07:35 BP 119/73 11/09/20 07:35 Pulse Ox 97 11/09/20 07:35 Weight - Most Recent: 92.533 kg Med Orders - Current: Current Medications Acetaminophen (Acetaminophen 500 Mg Tab) 500 mg PO Q4H PRN PRN Reason: Pain (mild 1-3) Acetaminophen (Acetaminophen 500 Mg Tab) 1,000 mg PO Q4H PRN PRN Reason: Pain (mild 1-3) Last Admin: 11/08/20 00:18 Dose: 1,000 mg Documented by: Benzocaine/Menthol (Benzocaine/Menthol 20%-0.5% Moira 78 Gm Cannister) 78 gm TOP ASDIRECTED PRN PRN Reason: Perineal Comfort Measure Last Admin: 11/08/20 00:20 Dose: 1 spray Documented by: Bisacodyl (Bisacodyl 10 Mg Supp) 10 mg RECTAL ONETIME PRN PRN Reason: Constipation Carboprost Tromethamine (Carboprost Tromethamine 250 Mcg/1 Ml Amp) 250 mcg IM ASDIRECTED PRN PRN Reason: Post Hemorrhage Docusate Sodium (Docusate Sodium 100 Mg Cap) 100 mg PO Q12H PRN PRN Reason: Constipation Emollient Ointment (Lanolin 100% Cream 7 Gm Tube) 0 gm TOP ASDIRECTED PRN PRN Reason: Sore Nipples Last Admin: 11/08/20 00:18 Dose: 1 applic Documented by: Oxytocin/Sodium Chloride (Oxytocin 30 Unit/500 Ml-Ns) 30 unit in 500 mls @ 500 mls/hr IV TITRATE JOSE Last Admin: 11/07/20 23:13 Dose: 999 mls/hr Documented by: Tranexamic Acid 1,000 mg/ (Sodium Chloride) 110 mls @ 660 mls/hr IV ONETIME PRN PRN Reason: Bleeding Lactated Ringer's (Ringers, Lactated) 1,000 mls @ 150 mls/hr IV ASDIRECTED JOSE Last Admin: 11/07/20 21:19 Dose: 150 mls/hr Documented by: Ibuprofen (Ibuprofen 400 Mg Tab) 400 mg PO Q4H PRN PRN Reason: Pain (mild 1-3) Ibuprofen (Ibuprofen 800 Mg Tab) 800 mg PO Q6H PRN PRN Reason: Pain (mild 1-3) Last Admin: 11/08/20 00:18 Dose: 800 mg Documented by: Ondansetron HCl (Ondansetron 4 Mg/2 Ml Sdv) 4 mg IVPUSH Q4H PRN PRN Reason: Nausea/Vomiting Last Admin: 11/07/20 20:48 Dose: 4 mg Documented by: Oxycodone HCl (Oxycodone 5 Mg Tab) 5 mg PO Q2H PRN PRN Reason: Pain (severe 7-10) Sodium Chloride (Sodium Chloride 0.9% 10 Ml Syringe) 10 ml FLUSH ASDIRECTED PRN PRN Reason: Keep Vein Open Sodium Chloride (Sodium Chloride 0.9% 2.5 Ml Syringe) 2.5 ml FLUSH ASDIRECTED PRN PRN Reason: Keep Vein Open Sodium Chloride (Sodium Chloride 0.9% 10 Ml Sdv) 10 ml IV ASDIRECTED PRN PRN Reason: IV Use Sterile Water (Water For Irrigation,Sterile 1,000 Ml Container) 1,000 ml IRR ASDIRECTED PRN PRN Reason: delivery Witch Sury (Witch Sury Medicated Pads 40/Jar) 1 pad TOP ASDIRECTED PRN PRN Reason: comfort care Last Admin: 11/08/20 00:19 Dose: 1 pad Documented by: Discontinued Medications Butorphanol Tartrate (Butorphanol 1 Mg/Ml Sdv) 1 mg IVPUSH Q1H PRN PRN Reason: Pain (severe 7-10) Ephedrine Sulfate (Ephedrine 50 Mg/Ml Sdv) 25 mg IM ONETIME ONE Stop: 11/07/20 20:34 Last Admin: 11/07/20 21:16 Dose: 25 mg Documented by: Ephedrine Sulfate (Ephedrine 50 Mg/Ml Sdv) 25 mg IVPUSH ONETIME ONE Stop: 11/07/20 20:40 Last Admin: 11/07/20 20:49 Dose: 25 mg Documented by: Epinephrine HCl (Epinephrine 1 Mg/Ml Sdv) Confirm Administered Dose 1 mg .ROUTE .STK-MED ONE Stop: 11/07/20 20:43 Last Admin: 11/08/20 00:32 Dose: Not Given Documented by: Oxytocin/Sodium Chloride (Oxytocin 30 Unit/500 Ml-Ns) 30 unit in 500 mls @ 2 mls/hr IV TITRATE JOSE; Protocol Ropivacaine (Naropin 0.2%) Confirm Administered Dose 200 mls @ as directed .ROUTE .STK-MED ONE Stop: 11/07/20 19:48 Last Admin: 11/08/20 00:32 Dose: Not Given Documented by: Lidocaine HCl (Lidocaine 1% 50 Ml Mdv) 50 ml INJECT ONETIME PRN PRN Reason: Laceration repair Methylergonovine Maleate (Methylergonovine 0.2 Mg/1 Ml Amp) 0.2 mg IM ASDIRECTED PRN PRN Reason: Post Hemorrhage Misoprostol (Misoprostol 200 Mcg Tab) 200 mcg PO ONETIME PRN PRN Reason: Post Hemorrhage Nalbuphine HCl (Nalbuphine 10 Mg/1 Ml Vial) 10 mg IVPUSH Q1H PRN PRN Reason: Pain (severe 7-10) Terbutaline Sulfate (Terbutaline 1 Mg/Ml Sdv) 0.25 mg SUBCUT ASDIRECTED PRN PRN Reason: Tacysystole - Interaction Infant Disposition, : [place] in Room with Family Infant Interaction: Holding Infant Infant Feeding: Attempted ; Nursed Fair/Poor Support Person: - Recovery Exam Fundal Tone: Firm Fundal Level: 2 Fingerbreadths Below Umbilicus Fundal Placement: Midline Lochia Amount: Scant Lochia Color: Rubra/Red Perineum Description: Intact, Minimal Bruising/Swelling Episiotomy/Laceration: None Bladder Status: Voiding Urinary Elimination: Voided - Exam General: Alert, Oriented HEENT: Pupils Equal Lungs: Normal Respiratory Effort GI/Abdominal Exam: Soft, Non-Tender, No Organomegaly, No Distention, No Mass Extremities: Normal Inspection, Non-Tender, No Pedal Edema, Normal Capillary Refill Skin: Warm, Dry, Intact Wound/Incisions: Healing Well Neurological: No New Focal Deficit Psy/Mental Status: Alert, Normal Affect, Normal Mood - Problem List & Annotations (1) Vaginal delivery SNOMED Code(s): 761577977 Code(s): O80 - ENCOUNTER FOR FULL-TERM UNCOMPLICATED DELIVERY Status: Acute Current Visit: No - Problem List Review Problem List Initiated/Reviewed/Updated: Yes - My Orders Last 24 Hours: My Active Orders 11/09/20 08:07 Ready for Discharge [RC] PER UNIT ROUTINE - Assessment Assessment:: PPD2 after TSVD, stable, minimal lochia, tolerating diet. Breast feeding is going well. Would like to go home today - Plan Plan:: Discharge instructions reviewed, dismiss to home today.
== END 2020-11-09 22:00 | disposition home or self-care (01) | DRG 560 ==
LOC: MW.OBCHECK 18:58 → MW.OB 18:59 → MW.OBCHECK 19:00 → MW.OB 19:00 → OBSVTOIN 23:40 → MW.OB 11-08 04:14
PROVIDERS: ADMIT Obstetrics & Gynecology; ATTEND Obstetrics & Gynecology
PROC: 10E0XZZ Delivery of Products of Conception, External Approach (ICD-10-PCS; principal; 2020-11-07)
PROC: 3E0R3BZ Introduction of Anesthetic Agent into Spinal Canal, Percutaneous Approach (ICD-10-PCS; 2020-11-07)
DX: O80 Encounter for full-term uncomplicated delivery (principal); Z3A.39 39 weeks gestation of pregnancy; Z37.0 Single live birth; Z20.822 Contact with and (suspected) exposure to COVID-19
CPT/HCPCS: 01967; 36415; 51702; 59025; 59409; 59414; 82803; 85014; 85018; 85027; 86592; 86850; 86900; 86901; A9270-GY; J2405; J2590; J2795; J7120; U0002

== ENCOUNTER 2021-01-04 10:15 | Day surgery (SDC) | payer BC ==
[~2021-01-04 10:15] MED LIST: Lactated Ringers 1,000 ML IV SCH; Sodium Chloride 0.9% 10 ML SDV IV PRN; Sodium Chloride 0.9% 10 ML Syringe FLUSH PRN; Sodium Chloride 0.9% 2.5 ML Syringe FLUSH PRN
[2021-01-04] MEDS ORDERED: Octyl 2-Cyanoacrylate 1 Tube ONE (10:29)
[2021-01-04] MEDS ORDERED: Bupivacaine 0.5% 30 ML SDV ONE (10:29)
[2021-01-04] MEDS ORDERED: Ondansetron 4 MG/2 ML SDV IVPUSH PRN (10:37)
[2021-01-04] MEDS ORDERED: fentaNYL 100 MCG/2 ML SDV IVPUSH PRN (10:37)
[2021-01-04] MEDS ORDERED: Morphine 2 MG/ML SYRINGE IVPUSH PRN (10:37)
[2021-01-04] MEDS ORDERED: HYDROmorphone 1 MG/ML Syringe IVPUSH PRN (10:37)
[2021-01-04] MEDS ORDERED: Naloxone 0.4 MG/ML SDV IVPUSH PRN (10:37)
[2021-01-04] MEDS ORDERED: Metoclopramide 10 MG/2 ML SDV IVPUSH PRN (10:37)
[2021-01-04] MEDS ORDERED: Albuterol 0.083% 2.5 MG/3 ML Neb Soln NEB PRN (10:37)
[2021-01-04] MEDS ORDERED: Rocuronium Bromide 50 MG/5 ML Syringe ONE (10:43)
[2021-01-04] MEDS ORDERED: Sugammadex Sodium 200 MG/2 ML VIAL ONE (10:43)
[2021-01-04] MEDS ORDERED: Lidocaine 2% 5 ML SDV ONE (10:43)
[2021-01-04] MEDS ORDERED: Dexamethasone 4 MG/ML 5 ML MDV ONE (10:43)
[2021-01-04] MEDS ORDERED: Ondansetron 4 MG/2 ML SDV ONE (10:43)
--- NOTE | 2021-01-04 10:43 | PCM.PREANE ---
Preanesthetic Assessment - Procedure Proposed Procedure: Lap Peace - Anesthesia/Transfusion/Family Hx Anesthesia History: Prior Anesthesia Without Reaction Family History of Anesthesia Reaction: No Transfusion History: No Prior Transfusion(s) - Review of Systems General: No Symptoms Pulmonary: No Symptoms Cardiovascular: No Symptoms Gastrointestinal: No Symptoms (Intermittent epigastric pain- on omeprazole) Neurological: No Symptoms Other: Reports: None - Physical Assessment NPO Status Date: 01/03/21 NPO Status Time: 20:00 Height: 5 ft 6 in Weight: 84.822 kg ASA Class: 2 Mental Status: Alert & Oriented x3 Airway Class: Mallampati = 2 Dentition: Reports: Normal Dentition Thyro-Mental Finger Breadths: 3 Mouth Opening Finger Breadths: 3 ROM/Head Extension: Full Lungs: Clear to Auscultation, Normal Respiratory Effort Cardiovascular: Regular Rate, Regular Rhythm - Allergies Allergies/Adverse Reactions: Allergies Allergy/AdvReac Type Severity Reaction Status Date / Time cat dander Allergy Rash Verified 01/01/21 07:21 peanut Allergy Anaphylactic Verified 01/01/21 07:21 Shock Penicillins Allergy Cannot Verified 01/01/21 07:21 Remember - Acknowledgements Anesthesia Type Planned: General Anesthesia Pt an Appropriate Candidate for the Planned Anesthesia: Yes Alternatives and Risks of Anesthesia Discussed w Pt/Guardian: Yes Pt/Guardian Understands and Agrees with Anesthesia Plan: Yes PreAnesthesia Questionnaire - Past Health History Medical/Surgical History: Denies Medical/Surgical History HEENT History: Reports: None Cardiovascular History: Reports: None Respiratory History: Reports: Other (See Below) Other Respiratory History: had inhaler as a child, no problems as an adult Gastrointestinal History: Reports: Other (See Below) Other Gastrointestinal History: intermittent epigastric pain Genitourinary History: Reports: None TRAVEL PT History: Reports: , Spontaneous , Other (See Below) Other OB/BYN History: Suction D&C, 8 weeks post , breast feeding Musculoskeletal History: Reports: None Neurological History: Reports: None Psychiatric History: Reports: None Endocrine/Metabolic History: Reports: None Hematologic History: Reports: None Immunologic History: Reports: None Oncologic (Cancer) History: Reports: None Dermatologic History: Reports: None - Infectious Disease History Infectious Disease History: Reports: Chicken Pox - Past Surgical History Head Surgeries/Procedures: Reports: None Respiratory Surgical History: Reports: None Female Surgical History: Reports: None - SUBSTANCE USE Tobacco Use Status *Q: Never Tobacco User - HOME MEDS Home Medications: Home Meds Pnv No.95/Ferrous Fum/Folic AC [ Caplet] 1 each PO DAILY 11/02/18 [History] Cholecalciferol (Vitamin D3) [Vitamin D3] 400 units PO DAILY 01/01/21 [History] L.acidoph,Paracasei, B.lactis [Probiotic] 1 tab PO DAILY 01/01/21 [History] Omeprazole 20 mg PO DAILY 01/01/21 [History] Scopolamine 1 patch TRDERM ONETIME 01/01/21 [History] traMADol HCl [Tramadol HCl] 50 mg PO ASDIRECTED PRN 01/01/21 [History] - CURRENT (IN HOUSE) MEDS Current Meds: Current Medications Lactated Ringer's (Ringers, Lactated) 1,000 mls @ 125 mls/hr IV ASDIRECTED JOSE Cefazolin Sodium/Dextrose 2 gm (/ Premix) 50 mls @ 100 mls/hr IV ONETIME ONE Stop: 01/04/21 11:31 Sodium Chloride (Sodium Chloride 0.9% 2.5 Ml Syringe) 2.5 ml FLUSH ASDIRECTED PRN PRN Reason: Keep Vein Open Sodium Chloride (Sodium Chloride 0.9% 10 Ml Sdv) 10 ml IV ASDIRECTED PRN PRN Reason: IV Use Sodium Chloride (Sodium Chloride 0.9% 10 Ml Syringe) 10 ml FLUSH ASDIRECTED PRN PRN Reason: Keep Vein Open Discontinued Medications Bupivacaine HCl (Bupivacaine 0.5% 30 Ml Sdv) Confirm Administered Dose 30 ml .ROUTE .STK-MED ONE Stop: 01/04/21 10:30 Octyl Cyanoacrylate (Octyl 2-Cyanoacrylate 1 Tube) Confirm Administered Dose 1 applic .ROUTE .STK-MED ONE Stop: 01/04/21 10:30
[2021-01-04] MEDS ORDERED: fentaNYL 250 MCG/5 ML SDV ONE (10:44)
[2021-01-04] MEDS ORDERED: Propofol 200 MG/20 ML SDV ONE (10:44)
[2021-01-04] MEDS ORDERED: Midazolam 1 MG/ML 2 ML SDV ONE (10:44)
[2021-01-04] MEDS ORDERED: ceFAZolin 2 GM in Premix Bag 1 BAG IV ONE (11:02)
[2021-01-04] MEDS ORDERED: Promethazine 25 MG/ML SDV ONE (11:22)
[2021-01-04] MEDS ORDERED: Sodium Chloride 0.9% 20 ML ONE (11:40)
[2021-01-04] MEDS ORDERED: ePHEDrine 50 MG/ML SDV ONE (11:40)
[2021-01-04] MEDS ORDERED: Ketorolac 30 MG/ML SDV ONE (12:54)
--- NOTE | 2021-01-04 13:16 | PCM.OPNOTE ---
- General Post-Op/Procedure Note Date of Surgery/Procedure: 01/04/21 Operative Procedure(s): Laparoscopic cholecystectomy Findings: Chronic cholecystitis Pre Op Diagnosis: Symptomatic cholelithiasis Post-Op Diagnosis: Chronic cholecystitis Anesthesia Technique: General ET Tube Primary Surgeon: Mickie Bhardwaj Fluid Replacement, Intraop: 1,400 Output, Urine Amount: 200 EBL in mLs: 10 Condition: Good Free Text/Narrative:: Intake & Output 01/03/21 01/04/21 01/04/21 22:59 06:59 14:59 Output Total 200 Balance -200
--- NOTE | 2021-01-04 13:30 | PCM.POSTAN ---
POST ANESTHESIA ASSESSMENT - MENTAL STATUS Mental Status: Somnolent - VITAL SIGNS Vital Signs: Last Vital Signs Temp 97.0 F 01/04/21 10:25 Pulse 71 01/04/21 10:25 Resp 16 01/04/21 10:25 BP 109/56 L 01/04/21 10:25 Pulse Ox 97 01/04/21 10:25 - RESPIRATORY Respiratory Status: Respiratory Rate WNL, Airway Patent, O2 Saturation Stable, Supplemental Oxygen - CARDIOVASCULAR CV Status: Pulse Rate WNL, Blood Pressure Stable - GASTROINTESTINAL GI Status: No Symptoms - PAIN Free Text/Narrative:: Resting comfortably - POST OP HYDRATION Hydration Status: Adequate & Stable
--- NOTE | 2021-01-04 13:53 | PCM48HPAN ---
Post Anesthesia Note - EVALUATION WITHIN 48HRS OF ANESTHETIC Vital Signs in Normal Range: Yes Patient Participated in Evaluation: Yes Respiratory Function Stable: Yes Airway Patent: Yes Cardiovascular Function Stable: Yes Hydration Status Stable: Yes Pain Control Satisfactory: Yes Nausea and Vomiting Control Satisfactory: Yes Mental Status Recovered: Yes Vital Signs: Last Vital Signs Temp 97.7 F 01/04/21 13:24 Pulse 61 01/04/21 13:49 Resp 11 L 01/04/21 13:49 BP 97/53 L 01/04/21 13:49 Pulse Ox 100 01/04/21 13:49 - COMMENTS/OBSERVATIONS Free Text/Narrative:: Pt doing well post-op. VSS. No apparent anesthetic complications. Dr. Ky Mendoza
[2021-01-04] MEDS ORDERED: Acetaminophen/oxyCODONE 325-5 MG Tab PO ONE (15:17)
--- NOTE | 2021-01-05 20:13 | OR ---
SURGEON: MICKIE RODRÍGUEZ MD DATE OF PROCEDURE: 01/04/2021 PREOPERATIVE DIAGNOSIS: Symptomatic cholelithiasis. POSTOPERATIVE DIAGNOSIS: Chronic cholecystitis. PROCEDURE PERFORMED: Laparoscopic cholecystectomy. PRIMARY SURGEON: Mickie Rodríguez MD ANESTHESIA: General endotracheal anesthesia. FLUIDS: 1400 mL crystalloid. ESTIMATED BLOOD LOSS: 10 mL. URINE OUTPUT: 200 mL. FINDINGS: Chronically inflamed appearing gallbladder. COMPLICATIONS: None. INDICATIONS: The patient is a 35-year-old female who presented to my clinic with right upper quadrant pain. Recently, she was seen by a primary care provider and found to have an elevated lipase as well as elevated LFTs. A followup MRCP was performed which was normal other than cholelithiasis. The patient has been having intermittent right upper quadrant pain ever since. Repeat labs were improved. The decision was made to proceed to the operating room for a laparoscopic, possible open cholecystectomy. I explained the procedure, expected perioperative course, and the risks. The patient verbalized understanding and wished to proceed. PROCEDURE IN DETAIL: The patient was brought in to the OR and placed on the OR table in supine position. A time-out was completed verifying the patient's name, age, date of , allergies, and procedure to be performed. General endotracheal anesthesia was induced. The left arm was tucked at the patient's side and a Sepulveda catheter was placed. The abdomen was prepped and draped in usual standard fashion. I anesthetized the infraumbilical fold with 0.5% Marcaine plain. An 11-blade was used to make an incision along the infraumbilical fold. Cautery was used to dissect down to the level of subcutaneous fat. I bluntly dissected down to the fascia. The fascia was elevated with Kochers and incised sharply with curved Butcher scissors. The peritoneum was entered bluntly using a hemostat. Entry into the abdomen was palpated digitally. A 12 mm Lauren trocar was placed into the abdomen and it was insufflated. A 5 mm 30-degree scope was inserted. I inspected the area underneath my initial trocar placement. No damage to surrounding structures was noted. The patient was then placed into reverse Trendelenburg position and airplaned slightly to the left. 5 mm trocars were placed in the following locations under direct visualization; one in the epigastric area, one in the right flank, and one 2 fingerbreadths below the right subcostal margin in the midclavicular line. The dome of the gallbladder was grasped and elevated anteriorly. I then began dissection along the proximal half of the gallbladder. Using a combination of blunt dissection as well as hook cautery, I took down the attachments surrounding the cystic duct and artery. Indocyanine green was used to identify the cystic artery and the cystic duct. Photographs of this were taken. Once my critical view was achieved, I doubly clipped and ligated my cystic duct and artery. The remainder of the attachments of the gallbladder to the cystic plate were taken down using hook cautery. The gallbladder was then placed in an EndoCatch bag and removed through the infraumbilical port site. I reinserted my 12 mm trocar and inspected my operative field. It appeared to be hemostatic with no evidence of bile leakage. The abdomen was irrigated with normal saline which was then suctioned out. The 5 mm trocars were removed under direct visualization, and the abdomen allowed to desufflate. The 12 mm trocar was removed as well. The fascia at the infraumbilical port site was closed with interrupted 0 Vicryl suture. The subcutaneous fat layer was closed with interrupted 3-0 Vicryl sutures. The skin was closed with a running 4-0 Monocryl stitch. The 5 mm trocar sites were closed with interrupted 4-0 Monocryl suture. Dermabond and sterile dressings were applied. The patient tolerated the procedure well, was extubated, and taken to the PACU in stable condition. KOLBY CARVALHO /[id number]
== END 2021-01-04 16:05 | disposition home or self-care (01) ==
LOC: MW.SDS 10:15
PROVIDERS: ATTEND Surgery
DX: K80.10 Calculus of gallbladder with chronic cholecystitis without obstruction (principal); R74.01 Elevation of levels of liver transaminase levels; Z79.899 Other long term (current) drug therapy; Z88.0 Allergy status to penicillin
CPT/HCPCS: 47562; 81025; A9270; J0131; J0690; J1100; J1885; J2250; J2405; J2704; J3010; J3490; J7030; J7120; 00790